=== PATIENT | female | born 1985 | race Caucasian/White ===

== ENCOUNTER 2019-09-21 04:15 | Outpatient (CLI) | payer OTHER ==
[~2019-09-21] VITALS: Ht 167.6 cm; Wt 76.7 kg
[2019-09-21 04:32] VITALS: BP 132/78
[2019-09-21] MEDS ORDERED: PRENTAB9 PO ×2 (05:05→13:34)
--- NOTE | 2019-09-21 10:23 | HPE ---
DATE OF ADMISSION: 09/21/2019 This lady is a 34-year-old, 4, para 2, abortio 1, last menstrual period (LMP) 12/16/2018, expected date of confinement (EDC) 09/22/2019 at 39 and 5, admitted with history of contractions every 2 minutes. No vaginal bleeding, loss, show or ruptured membranes. PAST HISTORY: In 2011, at 39 and 5, had a primary section for failure to dilate beyond 3 cm. Had a social induction. Delivered an infant 9 pounds. In 2012, at 12 weeks, had spontaneous . In 2013, elective repeat section 39 and 2, the baby was 9 pounds 6 ounces. LABS: O+, HIV negative, hepatitis negative, RPR negative, rubella immune, varicella immune. Pap normal. Urine negative. Gonorrhea and chlamydia negative. 1-hour glucose was 109. GBS is negative. Blood pressure 132/78, respirations 16, pulse 91, temperature 97.9. The patient was here for approximately 2 hours, showing a category one strip. On admission, examined and found to be 1 cm, posterior, vertex was high. After 2 hours with slowed contractions intermittently at 2-7 minutes, on examination again, the cervix was unchanged at 1 cm, posterior, vertex high. A little bit of show, but nothing significant. We discussed the fact that she is in either very early prodromal labor or Darrell Falk contractions and does not have to remain here for any other extended period of time. She was counseled regarding premature rupture of membranes, bleeding, contractions that are moderate intensity 2-7 minutes apart and lasting 45 seconds. She has an elective induction of labor on 09/27/2019 when she is 41 weeks or she is going to have an elective repeat section. This was discussed with her provider, Dr. Izaguirre. In spite of the fact that this lady has had a history of macrosomia x2 and has had two previous sections, she is still adamant about having a TOLAC, however, at the present time not being in labor the patient is safe to proceed and go home. She did mention that if she does have to have a repeat section she would be interested in bilateral tubal ligation at that time. The patient has a scheduled appointment on 09/26/2019 for discussion regarding induction of labor or repeat section. All questions were answered, both her and her sports reporter, and the patient was comfortable being discharged. We spent 35 minutes answering all kinds of questions to the patient's satisfaction. The patient was discharged undelivered.
[2019-09-21] MEDS ORDERED: PROBCAP14 PO (13:34)
[2019-09-21] MEDS ORDERED: COLA100C5 PO (13:34)
== END 2019-09-21 06:40 | disposition home or self-care (01) ==
LOC: M LDO 04:15
PROVIDERS: ATTEND Obstetrics & Gynecology
DX: O47.1 False labor at or after 37 completed weeks of gestation (principal); Z3A.39 39 weeks gestation of pregnancy; O34.211 Maternal care for low transverse scar from previous cesarean delivery
CPT/HCPCS: 59025; G0378; G0463

== ENCOUNTER 2019-09-21 13:11 | Inpatient (IN) | payer OTHER ==
[~2019-09-21] VITALS: Ht 167.6 cm; Wt 76.8 kg
[~2019-09-21 13:11] MED LIST: PRENTAB9 PO
[2019-09-21 13:20] VITALS: BP 115/77
[2019-09-21 13:26] VITALS: BP 115/77
[2019-09-21] MEDS ORDERED: PROBCAP14 PO (13:34)
[2019-09-21] MEDS ORDERED: PRENTAB9 PO (13:34)
[2019-09-21] MEDS ORDERED: COLA100C5 PO (13:34)
[2019-09-21] MEDS ORDERED: LR 1,000 ML IV ONE (15:00)
[2019-09-21 15:14] VITALS: BP 135/83
[2019-09-21 15:23] LABS: HEMATOCRIT 41.1 % (36.0-47.0); MEAN CORPUSCULAR HGB CONC 34.1 g/dl (32.0-36.5); MEAN CORPUSCULAR VOLUME 93.8 fl (80.0-96.0); PLATELET COUNT, AUTOMATED 218 10^3/uL (150-450); RED BLOOD COUNT 4.38 10^6/uL (4.00-5.40)
--- NOTE | 2019-09-21 15:41 | HPEPDOC ---
Obstetrical History & Physical General Date of Admission 09/21/2019 History of Present Illness Soraida is a 34yo with SIUP at 39w6d by lmp c/w 11wk u/s presenting with regular painful ctx. She has had ctx for the past 2 days, she presented this morning for labor check and was only 1cm so sent home. She notes since that time ctx became closer together and stronger. No LOF. No vaginal bleeding. Good movement. Chief Complaint: Contractions, term Information Provided By: Patient Care Care: Good Care Dating Final EDC: Sep 22, 2019 Final EDC by: LMP, 1st trimester (US) Antepartum Course Diagnos(e)s Hx of 2 prior sections (op reports in chart and reviewed) desiring TOLAC after counseling during Height (inches): 65 Pre- weight (lbs.): 139 Admission Weight (lbs.): 168 Change in Weight (lbs.): 29 Past Medical History Past Obstetrical History : Past Obstetrical History: Multigravida (2011 PLTCS at 39w5d for arrest of dilation during elective IOL 9lb, 2013 early sab, 2013 RLTCS 9lb6oz) Past Medical History Medical History Benign Surgical History: section, Dilatation and Curettage, Hernia repair, Rotan teeth Family History Significant Family History: No pertinent family hx Social History Marital Status: Family situation: Spouse/partner deployed Psychosocial History: No pertinent psych hx * Smoker: non-smoker Alcohol: Denies Drugs: denies Imunizations Tdap status: declined Influenza Status: declined Allergies Coded Allergies: No Known Allergies (Unverified , 09/21/19) Medications Scheduled Docusate Sodium (Colace) 100 Mg Capsule, 1 CAP PO BID Lactobacillus Acidophilus (Probiotic) 1 Each Capsule, 1 CAP PO TID No.137/Iron/Folic Acd ( Vitamin Tablet) 1 Each Tablet, 1 TAB PO DAILY No.137/Iron/Folic Acd ( Vitamin Tablet) 1 Each Tablet, 1 TAB PO DAILY Physical Examination Physical Examination GENERAL: Alert and oriented times three. ABDOMEN: Gravid and non-tender to touch. FETUS: Is vertex (VTX) by sterile vaginal examination (SVE) per Dr. Carranza EXTREMITIES: No edema of BLE Vital Signs/I&O Vital Signs Date Time Temp Pulse Resp B/P (MAP) Pulse Ox O2 Delivery O2 Flow Rate FiO2 09/21/19 13:26 98.2 84 18 115/77 (90) 09/21/19 13:20 Room Air Laboratory Data CBC/BMP 28wk H/H 12.5/36.3 Pertinent Laboratoy Data Blood Type: O+ RBC Antibody Screen: Negative HIV: Negative Hepatitis B: Negative Hepatitis C: Unknown Rapid Plasma Reagin: Nonreactive Rubella: Immune Varicella: Immune Chlamydia/Gonorrhea: Negative Group B Streptococcus: Negative Cystic Fibrosis: Negative Glucose Tolerance Test: 109 Anatomy Ultrasound Ultrasound Date: Apr 25, 2019 Placenta Location: Posterior Normal Anatomy: Yes Placenta Previa: No Other Ultrasounds 24 Aug 2019 cephalic, 50%ile 2619g Steroid Therapy Steroid Therapy: No Vaginal Examination Dilation: 2cm Effacement: 80% Station: -1 Cervical Consistency: Soft Cervical Position: Anterior Presentation: Cephalic presentation Assessment Heart Rate (FHR): 140 Variability: Moderate Accelerations: Positive Decelerations: Variable (only very occasional) Tocometer Contractions: Yes Frequency: regular, every 2-5 min. Duration: greater than 60 seconds Strength: palpated as strong Assessment/Plan Assessment Soraida is a 34yo with SIUP at 39w6d by lmp c/w 11wk u/s presents in latent labor with SCE /-1 having regular painful ctx q4-5min. She has hx of 2 prior sections and adamantly desires a TOLAC if at all possible after extensive counseling in clinic. Currently FHRT is Cat I, though there are very rare small variable decels. Vitals wnl. Benign exam. GBS negative. Cephalic by SCE. Plan Admit and orient. Nursing Secretary and consent. Diet: clear liquids Group B Streptococcus (GBS) negative Labs and intravenous (IV) per unit protocol. Lactated Ringers (LR): Bolus 1000 mL, then at 125 mL/hr. Will closely observe. Discussed risks of TOLAC again, namely 1-2% risk of uterine rupture. She understands that if she should require an emergency , the risks of the procedure are increased in comparison to a scheduled . Safe to proceed MD Zina Ozuna Katrina D MD Sep 21, 2019 15:41
[2019-09-21] MEDS: LR 1,000 ML IV SCH (16:12)
--- NOTE | 2019-09-21 16:15 | IPNPDOC ---
Text Note Date of Service The patient was seen on 09/21/19. NOTE Intrapartum Note Pt doing well, breathing through ctx. Vitals wnl, afebrile Cat I FHRT with bl 140, +accels, -decels, mod bruna Ferriday: irreg ctx currently SCE 80/-2, posterior/soft. Membranes swept per request. Discussed with patient no cervical change since last check, she is considering section. Will re-eval in 2 hours. Safe to proceed Dr. Mery Izaguirre MD VS,Roxy, I+O VS, Roxy, I+O Laboratory Tests 09/21/19 14:54 Vital Signs Date Time Temp Pulse Resp B/P (MAP) Pulse Ox O2 Delivery O2 Flow Rate FiO2 09/21/19 13:26 98.2 84 18 115/77 (90) 09/21/19 13:20 Room Air Mery Izaguirre MD Sep 21, 2019 16:15
[2019-09-21 16:30] VITALS: BP 121/56
[2019-09-21 17:28] VITALS: BP 116/63
[2019-09-21 18:37] VITALS: BP 129/75
[2019-09-21] MEDS ORDERED: diphenhydrAMINE INJ 50MG/ML VIAL (J1200) IV PRN (19:00)
[2019-09-21] MEDS ORDERED: ONDANSETRON 4MG/2ML VIAL (J2405) IV PRN ×2 (19:00→22:15)
[2019-09-21] MEDS ORDERED: LACTATED RINGER'S 1000 ML IV PRN (19:00)
[2019-09-21] MEDS ORDERED: REFRIGERATOR IV KEYS XX PRN (19:00)
[2019-09-21] MEDS ORDERED: FENTANYL/ROPIVACAINE/NACL BAG 100 ML EPIDURAL SCH (19:00)
[2019-09-21] MEDS ORDERED: ePHEDrine SULFATE 25 MG/5 ML(5MG/ML) SYRINGE IV PRN (19:00)
[2019-09-21] MEDS ORDERED: NALOXONE INJ 0.4 MG/1 ML VIAL (J2310) IV PRN (19:00)
[2019-09-21] MEDS ORDERED: EPIDURAL/PCA KEYS XX PRN (19:00)
[2019-09-21] MEDS ORDERED: EPIDURAL COMMENT XX SCH (19:00)
[2019-09-21] MEDS ORDERED: FENTANYL 2MCG/ML ROPIVACAINE 0.2% IN 0.9% NACL 100ML IVBAG As Ordered ONE (19:16)
[2019-09-21] MEDS ORDERED: ceFAZolin 2 GM/D5W 50 ML IV BAG (J0690 PER 500MG) As Ordered ONE (20:14)
[2019-09-21] MEDS ORDERED: BICITRA 30ML SOLN UDC As Ordered ONE (20:14)
[2019-09-21] MEDS ORDERED: BICITRA 30ML SOLN UDC PO ONE (20:15)
[2019-09-21] MEDS ORDERED: ceFAZolin SOD 2 GM in IV 1 EA IV ONE (20:15)
--- NOTE | 2019-09-21 20:16 | IPNPDOC ---
Text Note Date of Service The patient was seen on 09/21/19. NOTE Decision for section Patient received epidural and is now comfortable. Vitals wnl, afebrile Cat II FHRT with min-mod bruna, occasional variable decels, +accels SCE 3/80/-2, posterior Discussed with patient that in the setting of non-changing cervix and Cat II FHRT, given that she is undergoing TOLAC, it would be prudent to proceed with delivery. She is amenable to this. Fully discussed consent form, all r/b/a. Nursing team and anesthesia aware Bicitra 2g IV anceph Will proceed to OR when team is ready Dr. Mery Izaguirre MD VS,Roxy, I+O VS, Roxy, I+O Laboratory Tests 09/21/19 14:54 Vital Signs Date Time Temp Pulse Resp B/P (MAP) Pulse Ox O2 Delivery O2 Flow Rate FiO2 09/21/19 18:37 98.6 90 129/75 (93) 09/21/19 17:30 18 09/21/19 13:20 Room Air Mery Izaguirre MD Sep 21, 2019 20:16
[2019-09-21] MEDS ORDERED: LIDOCAINE 2% W/EPIN INJ 20ML **PRES FREE As Ordered ONE (20:50)
[2019-09-21] MEDS ORDERED: OXYTOCIN INJ 10 UNITS/ML VIAL (J2590) As Ordered ONE ×2 (20:50→21:59)
[2019-09-21] MEDS ORDERED: PHENYLephrine HCL 500 MCG/5 ML (100MCG/ML) SYRINGE (J2370) As Ordered ONE (20:50)
[2019-09-21] MEDS ORDERED: dexameTHASONE 4 MG/ML 1ML VIAL (J1100) As Ordered ONE (20:57)
[2019-09-21] MEDS ORDERED: ONDANSETRON 4MG/2ML VIAL (J2405) As Ordered ONE (20:57)
[2019-09-21] MEDS ORDERED: propofoL 200 MG/20 ML VIAL As Ordered ONE (21:26)
[2019-09-21] MEDS ORDERED: MORPHINE PRES-FREE INJ 10 MG/10 ML VIAL (J2274) As Ordered ONE (21:34)
[2019-09-21] MEDS ORDERED: KETOROLAC 60 MG/2 ML VIAL (J1885) As Ordered ONE (21:36)
[2019-09-21] MEDS ORDERED: METOCLOPRAMIDE INJ 10MG/2ML VIAL (J2765) As Ordered ONE (21:42)
[2019-09-21] MEDS ORDERED: OXYTOCIN DRIP 30 UNITS in IV 1 EA IV SCH (22:04)
--- NOTE | 2019-09-21 22:13 | DNPDOC ---
[facility] Delivery Note Delivery Note DATE OF DELIVERY: 21 Sep 2019 PREDELIVERY DIAGNOSIS: 39w6d gestation, latent labor, history of 2 prior sections, Cat II FHRT POST DELIVERY DIAGNOSIS: kee, uterine window PROCEDURE: repeat low transverse section CARTOGRAPHY/MAPPING TECHNICIAN: Dr. Mery Izaguirre MD ANESTHESIA: epidural ESTIMATED BLOOD LOSS: 700 mL. FINDINGS: 7 pound 11 ounce female infant, Score 8/9, nuchal cord times 1 DELIVERY SUMMARY: Soraida is a [id number] s/p uncomplicated RLTCS at 2103 on 09/21/2019. She desired TOLAC, but was in latent labor for 2 days and after admission developed persistent Cat II FHRT so was counseled for RLTCS. Delivery only notable for uterine window. See dictated op report for further details. MD Zina Ozuna Katrina D MD Sep 21, 2019 22:13
[2019-09-21] MEDS ORDERED: RHOGAM 300 MCG (1500 IU) INJ (J2790) IM SCH (22:15)
[2019-09-21] MEDS ORDERED: MEASLES,MUMPS,RUBELLA VACCINE INJ (MMR-II) (90707) SC SCH (22:15)
[2019-09-21] MEDS ORDERED: PERCOCET 5MG/325MG TAB PO PRN ×2 (22:15)
[2019-09-22] VITALS (10 sets, daily range): BP systolic 104–125; BP diastolic 57–74
[2019-09-22] MEDS: LR 1,000 ML IV SCH (02:08)
[2019-09-22] MEDS: KETOROLAC 30 MG/ML VIAL (J1885) IV SCH ×3 (05:46→17:51)
--- NOTE | 2019-09-22 06:24 | IPNPDOC ---
Progress Note Date of Service: Sep 22, 2019 Day#: 1 Progress Note SUBJECT: Patient is a 34-year-old 3 now Para 3 status post RLTCS after failed TOLAC, doing well postop day # 1. She has been ambulating, voiding spontaneously without issue and tolerating regular diet. Breast feeding without issue. Reports lochia is like a normal period. Patient is ambulating well. Reports some cramping with . Denies appropriate pain. OBJECTIVE: VITAL SIGNS: Within normal limits, afebrile. Alert and oriented times three. Breast without erythema or masses Breath sounds clear to auscultation. Heart rate: Regular rate and rhythm, no murmurs, rubs or gallops. Abdomen: Fundus firm at U-2. Soft, NTTP. Dressing clean, dry, and intact. Minimal lochia. Lower extremeties without edema or tenderness. ASSESSMENT: Patient is a 34-year-old 3 now Para 3 status post RLTCS aft er failed TOLAC, doing well postop day # 1. Vitals within normal limits, afebrile, hemodynamically stable with no evidence of infection. PLAN: 1. Routine postop advances. 2. Tylenol and Motrin and percocet for pain. 3. Encourage breast feeding and ambulation. VS, I&O, 24H, Fishbone Vital Signs/I&O Vital Signs Date Time Temp Pulse Resp B/P (MAP) Pulse Ox O2 Delivery O2 Flow Rate FiO2 09/22/19 02:30 98.1 90 15 111/70 (84) 96 Room Air I&O- Last 24 Hours up to 6 AM 09/22/19 06:00 Intake Total 5540 ml Output Total 1050 ml Balance 4490 ml Laboratory Data 24H LABS Laboratory Tests 2 09/21/19 14:54: Nucleated Red Blood Cells % (auto) 0.0 09/21/19 15:49: Serology Scanned Report Hepatitis B Testing CBC/BMP Laboratory Tests 09/21/19 14:54 Alanis Carranza MD Sep 22, 2019 06:23
[2019-09-22 07:27] LABS: HEMATOCRIT 35.6 % (36.0-47.0); HEMOGLOBIN 12.3 g/dl (12.0-15.5); MEAN CORPUSCULAR HEMOGLOBIN 32.7 pg (27.0-33.0); MEAN CORPUSCULAR HGB CONC 34.6 g/dl (32.0-36.5); MEAN CORPUSCULAR VOLUME 94.7 fl (80.0-96.0); PLATELET COUNT, AUTOMATED 198 10^3/uL (150-450); RED BLOOD COUNT 3.76 10^6/uL (4.00-5.40); WHITE BLOOD COUNT 12.8 10^3/uL (4.0-10.0)
[2019-09-22] MEDS: DOCUSATE SODIUM 100 MG CAP PO SCH ×2 (08:46→21:15)
[2019-09-22] MEDS: PRENATAL VITAMINS CHEWABLE TABLET PO SCH (08:47)
--- NOTE | 2019-09-22 11:33 | RO ---
DATE OF OPERATION: 09/21/2019 STAFF SURGEON: Mery Izaguirre MD SCARRER: Alanis Carranza MD CLINICAL SERVICE: Obstetrics. INDICATION FOR OPERATION: The patient is a 34-year-old, G4, now P3-0-1-3 who presented to labor and delivery at 39 weeks 6 days gestation in latent labor which had been going on for about 2 days. After admission had developed a persistent category II heart rate tracing with variable heart rate decelerations. Notably, she has a history of two prior sections and was attempting trial of labor after (TOLAC), but there was indication for section. PREOPERATIVE DIAGNOSES: 1. Nelson intrauterine at 39 weeks 6 days with history of two prior sections in latent labor. 2. Development of category II heart rate tracing. POSTOPERATIVE DIAGNOSES: 1. Nelson intrauterine at 39 weeks 6 days with history of two prior sections in latent labor. 2. Development of category II heart rate tracing. 3. Uterine window. MATERIAL FORWARDED TO THE LABORATORY FOR EXAMINATION: None. DESCRIPTION OF FINDINGS: Female in occipitoanterior (OA) position. scores 8 and 9. Weight 3490 grams or 7 pounds 11 ounces. Normal-appearing uterus and fallopian tubes. There was a right ovarian simple-appearing cyst. She had prior umbilical hernia repair with mesh placement, and the mesh was noted in appropriate position while we were manipulating during the surgery. There was dense adhesion in the subcutaneous layers, and there was a uterine window such that as I was creating the bladder flap, I entered into the uterus. There was scarring of the bladder up to the uterus, as well. INFECTION CLASSIFICATION: 2. ESTIMATED BLOOD LOSS: 700 mL. INTRAVENOUS (IV) FLUIDS: 2 liters of lactated Ringer. URINE OUTPUT: 200 mL of clear yellow urine. OPERATION PERFORMED: Repeat low transverse section. DESCRIPTION OF OPERATION: The patient was taken to the operating room. Doptones in the operating room (OR) were in the 140s. She had already received epidural anesthesia. Black catheter and bilateral sequential compression devices were in place. She was prepped and draped in normal sterile fashion in the dorsal supine position with a left lateral tilt. Time-out was performed to confirm patient name, date of , procedure, and indication. The team was in agreement. Epidural anesthesia was found to be adequate using an Allis clamp. Ancef 2 grams IV was given prophylactically. A Pfannenstiel skin incision was made with a scalpel and carried through to the underlying layer of fascia. The fascia was incised in the midline, and the incision was extended laterally with Bhardwaj scissors. Superior and inferior aspects of the fascial incision were grasped with Kanchan clamps, elevated, and the underlying rectus muscles were dissected off bluntly and sharply. Peritoneum was entered digitally, and the rectus muscles were in the midline. Peritoneal incision was extended superiorly and inferiorly with good visualization of the bladder. Bladder blade was inserted, and the vesicouterine peritoneum was identified, grasped with pickups, and entered sharply with Metzenbaum scissors. The incision was extended laterally, and bladder flap was created digitally. While I was creating the bladder flap, I unintentionally inserted my finger through the uterine wall because that is how thin the lower uterine segment was, such that it was essentially a uterine window. I incorporated that area into the hysterotomy using a scalpel, scoring the lower uterine segment, and then continuing to open the hysterotomy along that line that I created beginning where that uterine window was. Clear amniotic fluid was noted. Bladder blade was removed, and infant's head was elevated to the level of the incision. Fundal pressure was applied, and the head was delivered atraumatically in the OA position. Anterior shoulder, posterior shoulder, and corpus were delivered without difficulty. Cord was clamped times two and cut, and the was handed off to the awaiting nursing team. Placenta was removed with traction on the cord and uterine massage, and the uterus was then exteriorized and cleared of all clot and debris. Uterine incision was repaired with 0 Vicryl suture in a running locking fashion, and a second layer of 0 Monocryl was used to close the hysterotomy incision in an imbricating fashion. I stayed along the hysterotomy incision and above for the imbrication, given that the bladder was close to the hysterotomy on the inferior portion of the uterus. The uterine incision was inspected, and hemostasis was noted. Posterior cul-de-sac was irrigated, and the uterus was returned to the abdomen. Gutters were cleared of all clot. Wilfrid was applied along the hysterotomy area. The peritoneum was closed using 3-0 Vicryl suture in a running fashion. Rectus muscles were reapproximated with figure-of-8 stitches using 0 Vicryl suture. The fascia was reapproximated with 0 Vicryl suture in a running fashion. Subcutaneous tissue was copiously irrigated. Elham's fascia was reapproximated using 3-0 Vicryl suture in a running fashion. Skin edges were reapproximated using three inverted interrupted stitches using 3-0 Vicryl suture followed by a running subcuticular stitch using 4-0 Monocryl suture. Incision was cleaned using wet lap, dried with a dry lap. Steri-Strips were applied in the usual fashion, and an Optifoam dressing was applied over that. The vagina was cleared of all blood clot without active bleeding noted. Fundus was firm at the umbilicus. All counts were correct times two. The procedure was without complications, and the patient tolerated the procedure well. She was taken to the recovery room on labor and delivery in stable condition. JOAQUINA
[2019-09-23] MEDS: IBUPROFEN 800 MG TAB PO SCH ×2 (01:08→09:29)
[2019-09-23 02:00] VITALS: BP 112/70
[2019-09-23 06:00] VITALS: BP 127/79
[2019-09-23] MEDS: PRENATAL VITAMINS CHEWABLE TABLET PO SCH (07:42)
[2019-09-23] MEDS: DOCUSATE SODIUM 100 MG CAP PO SCH (07:42)
--- NOTE | 2019-09-23 08:54 | IPNPDOC ---
Progress Note Date of Service: Sep 23, 2019 Day#: 2 Progress Note POD 2/PPD 2 SUBJECT: Soraida is a 34yo [id number] s/p uncomplicated RLTCS after failed TOLAC, doing well postop day # 2. She has been ambulating, voiding spontaneously without issue and tolerating regular diet. Breast feeding without issue. Reports lochia is like a normal period. Reports some cramping with , minimal pain. No f/c/n/v/CP/SOB. Patient has needed an enema after both prior deliveries and struggles with constipation on a daily basis. No BM yet, feels the urge to go but unable to. OBJECTIVE: VITAL SIGNS: Within normal limits, afebrile. Alert and oriented times three Abdomen: Fundus firm at U-2. Soft, appropriately tender to palpation. Optifoam overlying pfannensteil incision has two very small areas of strikethrough. No erythema Lower extremeties without edema or tenderness Labs: pre-op H/H: 14/41.1 post-op H/H: 12.3/35.6 ASSESSMENT: Soraida is a 34yo [id number] s/p uncomplicated RLTCS after failed TOLAC, doing well postop day # 2. Vitals within normal limits, afebrile, hemodynamically stable with no evidence of infection. Constipation. PLAN: 1. Routine postop and care 2. Motrin and percocet for pain 3. Encourage breast feeding and ambulation 4. Regular diet 5. Colace daily, prn miralax, prn fleets enema 6. Abdominal binder 7. Possible discharge tomorrow if meeting all milestones Dr. Mery Izaguirre MD VS, I&O, 24H, Fishbone Vital Signs/I&O Vital Signs Date Time Temp Pulse Resp B/P (MAP) Pulse Ox O2 Delivery O2 Flow Rate FiO2 09/23/19 06:00 98.8 61 18 127/79 (95) 99 09/22/19 14:30 Room Air I&O- Last 24 Hours up to 6 AM 09/23/19 05:59 Intake Total 540 ml Output Total 2220 ml Balance -1680 ml Mery Izaguirre MD Sep 23, 2019 08:54
[2019-09-23] MEDS ORDERED: MIRALAX *UNIT DOSE* 17GM PACKET PO PRN (09:00)
[2019-09-23] MEDS ORDERED: FLEET ENEMA PR PRN (09:00)
[2019-09-23] MEDS ORDERED: PEG1POW PO (12:40)
[2019-09-23] MEDS ORDERED: PERCOCET PO (12:40)
[2019-09-23] MEDS ORDERED: IBUP80TA PO (12:40)
--- NOTE | 2019-09-23 12:50 | DS.PDOC ---
Discharge Summary General Date of Admission Sep 21, 2019 at 15:37 Date of Discharge Sep 23, 2019 Attending Physician: Mery Izaguirre MD Discharge Summary PROCEDURES PERFORMED DURING STAY: repeat low transverse section ADMITTING DIAGNOSES: 1. latent labor at term 2. history of prior section x2 desiring TOLAC DISCHARGE DIAGNOSES: 1. latent labor at term 2. history of prior section x2 desiring TOLAC 3. Persistent Cat II heart rate tracing, failed TOLAC COMPLICATIONS/CHIEF COMPLAINT: TOLAC. HISTORY OF PRESENT ILLNESS/HOSPITAL COURSE: Soraida is a 34yo [id number] s/p uncomplicated RLTCS after failed TOLAC, doing well postop day # 2. Vitals within normal limits, afebrile, hemodynamically stable with no evidence of infection. Constipation. DISCHARGE MEDICATIONS: Please see below. ALLERGIES: Please see below. PHYSICAL EXAMINATION ON DISCHARGE: VITAL SIGNS: Within normal limits, afebrile. Alert and oriented times three Abdomen: Fundus firm at U-2. Soft, appropriately tender to palpation. Optifoam overlying pfannensteil incision has two very small areas of strikethrough. No erythema Lower extremeties without edema or tenderness LABORATORY DATA: Please see below pre-op H/H: 14/41.1 post-op H/H: 12.3/35.6 ACTIVITY: As tolerated, vaginal rest and no heavy lifting 6 weeks DIET: regular DISPOSITION: home DISCHARGE PLAN/INSTRUCTIONS: 1. Discharge to home 2. Motrin and percocet for pain 3. Encourage breast feeding and ambulation 4. Regular diet 5. Colace daily, prn miralax 6. Abdominal binder 7. Follow up in [address] Izaguirre for incision check 8. Remove optifoam dressing and steri strips in 1 week 9. Return precautions discussed DISCHARGE CONDITION: Stable TIME SPENT ON DISCHARGE: Greater than [address] Mery Izaguirre MD Vital Signs/I&Os Vital Signs Date Time Temp Pulse Resp B/P (MAP) Pulse Ox O2 Delivery O2 Flow Rate FiO2 09/23/19 06:00 98.8 61 18 127/79 (95) 99 09/22/19 14:30 Room Air I&O- Last 24 Hours up to 6 AM 09/23/19 06:00 Output Total 1020 ml Balance -1020 ml Discharge Medications Scheduled Docusate Sodium (Colace) 100 Mg Capsule, 1 CAP PO BID, (Reported) Ibuprofen (Ibuprofen) 800 Mg Tablet, 800 MG PO Q8H Lactobacillus Acidophilus (Probiotic) 1 Each Capsule, 1 CAP PO TID, (Reported) No.137/Iron/Folic Acd ( Vitamin Tablet) 1 Each Tablet, 1 TAB PO DAILY, (Reported) No.137/Iron/Folic Acd ( Vitamin Tablet) 1 Each Tablet, 1 TAB PO DAILY, (Reported) Scheduled PRN Oxycodone/Acetaminophen (Oxycodone-Acetaminophen 5-325) 1 Each Tablet, 2 TAB PO Q6H PRN for SEVERE PAIN (PS 8-10) Polyethylene Glycol 3350 (Polyethylene Glycol 3350) 17 Gm Powd.pack, 1 PKT PO DAILYPRN PRN for CONSTIPATION Allergies Coded Allergies: No Known Allergies (Unverified , 09/21/19) Mery Izaguirre MD Sep 23, 2019 12:50
== END 2019-09-23 14:40 | disposition home or self-care (01) | DRG 773 ==
LOC: M LDO 13:11 → M LDI 15:37 → M OBS 23:49
PROVIDERS: ADMIT Obstetrics & Gynecology; ATTEND Obstetrics & Gynecology
PROC: 10D00Z1 Extraction of Products of Conception, Low, Open Approach (ICD-10-PCS; principal; 2019-09-21 20:14)
DX: O34.211 Maternal care for low transverse scar from previous cesarean delivery (principal); Z3A.39 39 weeks gestation of pregnancy; O66.41 Failed attempted vaginal birth after previous cesarean delivery; Z37.0 Single live birth; O94 Sequelae of complication of pregnancy, childbirth, and the puerperium; K59.00 Constipation, unspecified; O99.62 Diseases of the digestive system complicating childbirth